=== PATIENT | male | born 1990 | race Two or more races ===

== ENCOUNTER 2020-09-12 14:45 | Emergency (ER) | payer MEDICAID, OTHER ==
[~2020-09-12] VITALS: Ht 170.2 cm; Wt 102.1 kg
[2020-09-12 15:22] VITALS: BP 131/82
[2020-09-12] MEDS ORDERED: HYDROcodone-ACET 10/325MG TAB PO ONE (15:45)
== END 2020-09-12 16:51 | disposition home or self-care (01) ==
LOC: ER 14:45
DX: S42.011A Anterior displaced fracture of sternal end of right clavicle, initial encounter for closed fracture (principal); M54.5 Low back pain; V87.8XXA Person injured in other specified noncollision transport accidents involving motor vehicle (traffic), initial encounter; Y93.89 Activity, other specified; Y92.89 Other specified places as the place of occurrence of the external cause; Y99.8 Other external cause status
CPT/HCPCS: 71046; 72100; 73000

== ENCOUNTER 2020-12-09 18:22 | Emergency (ER) | payer MEDICAID, OTHER ==
[~2020-12-09] VITALS: Ht 170.2 cm; Wt 99.8 kg
[2020-12-09 18:22] VITALS: BP 130/73
== END 2020-12-10 02:45 | disposition left against medical advice (07) ==
LOC: ER 18:22
DX: J02.9 Acute pharyngitis, unspecified (principal); R06.02 Shortness of breath; Z53.21 Procedure and treatment not carried out due to patient leaving prior to being seen by health care provider

== ENCOUNTER → 2021-04-07 | Emergency (ER) | payer MEDICAID, OTHER ==
[~2021-04-07] VITALS: Ht 170.2 cm; Wt 97.5 kg
[2021-04-07 17:32] VITALS: BP 140/69
== END | disposition home or self-care (01) ==
LOC: ER 15:57
DX: H02.2 Lagophthalmos (principal)